=== PATIENT | female | born 1950 | race Hispanic/Latino ===

== ENCOUNTER 2020-04-07 16:09 | Inpatient (IN) | payer MEDICARE, OTHER ==
[2020-04-07 16:26] LABS: ABG BASE EXCESS -30.7 mmol/L (-2.0-3.0); ABG HCO3 7.3 mmol/L (21.0-28.0); ABG OXYGEN SATURATION 28.8 % (95.0-99.0); ABG PCO2 71 mmHg (32-45)
[2020-04-07] MEDS ORDERED: PHENYLEPHRINE HCL 10 MG/ML 1ML VIAL IV ONE (16:33)
[2020-04-07] MEDS ORDERED: SODIUM CHLORIDE 0.9% 250 ML IV ONE ×2 (16:34→17:01)
[2020-04-07 16:40] LABS: INR 1.45 (0.85-1.15)
[2020-04-07 16:41] LABS: PARTIAL THROMBOPLASTIN TIME 55.6 SEC (26.3-35.5)
[2020-04-07] MEDS ORDERED: PANTOPRAZOLE 40 MG/VIAL ONE (16:42)
[2020-04-07 16:43] LABS: CREATININE 1.9 mg/dL (0.5-1.5); POTASSIUM 5.2 mmol/L (3.5-5.1)
[2020-04-07 16:44] LABS: APPEARANCE,URINE SL CLOUDY (CLEAR); BILIRUBIN,URINE NEGATIVE (NEGATIVE); COLOR,URINE YELLOW (YELLOW); GLUCOSE, URINE (UA) NEGATIVE (NEGATIVE); KETONES,URINE 15 mg/dL (NEGATIVE); LEUKOCYTE ESTERASE ,URINE NEGATIVE (NEGATIVE); NITRATE,URINE NEGATIVE (NEGATIVE); OCCULT BLOOD,URINE NEGATIVE (NEGATIVE); PH,URINE 5.5 (5.0-8.0); PROTEIN,URINE 100 mg/dL (NEGATIVE)
[2020-04-07 16:51] LABS: BACTERIA,URINE Many /HPF (None Seen); HYALINE CASTS, URINE 0-1 /LPF (0-1 /LPF); MUCUS,URINE Few LPF (None Seen); SQUAMOUS EPITHELIAL CELL,UR 0-2 /HPF (0-2)
[2020-04-07] MEDS ORDERED: NOREPINEPHRINE BITARTRATE 1 MG/1 ML ML IV ONE (17:00)
[2020-04-07 17:06] LABS: BASOPHILS % (AUTO) 0.9 % (0.0-5.0); EOSINOPHILS % (AUTO) 0.2 % (0.0-8.0); LYMPHOCYTES % (AUTO) 23.6 % (21.0-51.0); MEAN CORPUSCULAR HEMOGLOBIN 30.1 pg (27.0-33.0); MEAN CORPUSCULAR HGB CONC 30.5 g/dL (32.0-36.0); MEAN CORPUSCULAR VOLUME 98.4 fL (79-99); MONOCYTES % (AUTO) 1.9 % (3.0-13.0); NEUTROPHILS % (AUTO) 62.2 % (40.0-77.0); PLATELET COUNT (AUTO) 137 K/uL (130-400); RED BLOOD CELL COUNT(AUTO) 3.86 MIL/uL (4.00-5.50); RED CELL DISTRIBUTION WIDTH 13.1 % (11.0-15.5); WHITE BLOOD COUNT (AUTO) 18.6 K/uL (4.8-10.8)
[2020-04-07 17:11] LABS: ALBUMIN 2.5 g/dL (3.5-5.0); BILIRUBIN,TOTAL 0.6 mg/dL (0.2-1.0); TOTAL PROTEIN, SERUM 6.9 g/dL (6.0-8.3)
[2020-04-07 17:17] LABS: TROPONIN I 1.51 ng/mL (0.00-0.06)
[2020-04-07] MEDS ORDERED: DOPAMINE 800MG/D5 250ML 250 ML IV ONE (17:24)
[2020-04-07] MEDS ORDERED: DEXTROSE 5%-WATER 1,000 ML IV ONE (17:36)
[2020-04-07] MEDS ORDERED: SODIUM BICARB 50MEQ 50ML VIAL 100 ML ONE (17:40)
[2020-04-07] MEDS ORDERED: MEROPENEM 1 GM VIAL IVP SCH (17:45)
[2020-04-07] MEDS ORDERED: FENTANYL 2500MCG+NS 250ML 250 ML IV SCH (18:00)
[2020-04-07] MEDS ORDERED: PHARMACY COMMUNICATION MISC SCH ×4 (18:00→19:15)
[2020-04-07] MEDS ORDERED: LINEZOLID 600 MG/ISO-OSM 300 ML IV SCH (18:00)
[2020-04-07] MEDS ORDERED: PHENYLEPHRINE HCL 10/NS 250ML IV PRN ×2 (18:15)
[2020-04-07] MEDS ORDERED: HYDROCORTISONE SOD SUCCINATE 100 MG/2 ML VIAL IV SCH (18:15)
[2020-04-07] MEDS ORDERED: NOREPINEPHRINE 4MG/NS 250ML 250 ML IV SCH (18:15)
[2020-04-07] MEDS ORDERED: MEROPENEM 1 GM VIAL ONE (18:26)
[2020-04-07] MEDS ORDERED: DEXTROSE 5%-WATER 100 ML IV ONE (18:27)
[2020-04-07] MEDS ORDERED: DOXYCYCLINE 100MG+NS 250ML 250 ML IV SCH (18:30)
[2020-04-07] MEDS ORDERED: SODIUM BICARB 50MEQ 50ML VIAL 50 ML ONE (18:41)
[2020-04-07] MEDS ORDERED: SODIUM CHLORIDE 0.9% 1000ML 2,000 ML IV ONE (18:44)
[2020-04-07] MEDS ORDERED: HYDROCORTISONE SOD SUCCINATE 100 MG/2 ML VIAL ONE (18:50)
[2020-04-07 18:57] LABS: CRP QUANTITATIVE 358.4 mg/L (0.00-9.0)
[2020-04-07 19:26] LABS: ABG BASE EXCESS -23.5 mmol/L (-2.0-3.0); ABG HCO3 9.3 mmol/L (21.0-28.0); ABG OXYGEN SATURATION 47.3 % (95.0-99.0); ABG PCO2 51 mmHg (32-45)
[2020-04-07] MEDS ORDERED: PANTOPRAZOLE 40 MG/VIAL IVP SCH (20:00)
[2020-04-08] MEDS ORDERED: PANTOPRAZOLE 40 MG/VIAL IVP SCH (09:00)
== END 2020-04-07 20:22 | disposition expired | DRG 871 ==
LOC: EDH 16:09 → EDHIP 17:43
PROVIDERS: ADMIT Internal Medicine; ATTEND Internal Medicine
PROC: 5A12012 Performance of Cardiac Output, Single, Manual (ICD-10-PCS; principal; 2020-04-07)
PROC: 05HM33Z Insertion of Infusion Device into Right Internal Jugular Vein, Percutaneous Approach (ICD-10-PCS; 2020-04-07)
PROC: B543ZZA Ultrasonography of Right Jugular Veins, Guidance (ICD-10-PCS; 2020-04-07)
PROC: 5A1935Z Respiratory Ventilation, Less than 24 Consecutive Hours (ICD-10-PCS; 2020-04-07)
PROC: 0BH17EZ Insertion of Endotracheal Airway into Trachea, Via Natural or Artificial Opening (ICD-10-PCS; 2020-04-07)
DX: A41.50 Gram-negative sepsis, unspecified (principal); I21.A1 Myocardial infarction type 2; J12.82 Pneumonia due to coronavirus disease 2019; J80 Acute respiratory distress syndrome; K72.00 Acute and subacute hepatic failure without coma; R65.21 Severe sepsis with septic shock; U07.1 COVID-19; N17.9 Acute kidney failure, unspecified; N39.0 Urinary tract infection, site not specified; E87.4 Mixed disorder of acid-base balance; G93.1 Anoxic brain damage, not elsewhere classified; Z66 Do not resuscitate; E11.9 Type 2 diabetes mellitus without complications; E66.01 Morbid (severe) obesity due to excess calories; E78.5 Hyperlipidemia, unspecified; E87.5 Hyperkalemia; I10 Essential (primary) hypertension; I46.9 Cardiac arrest, cause unspecified; K75.89 Other specified inflammatory liver diseases
CPT/HCPCS: 36415; 36600; 71045; 80053; 81001; 82435; 82550; 82728; 82803; 82947; 83605; 83615; 83874; 84132; 84145; 84295; 84484; 85018; 85025; 85378; 85610; 85730; 86140; 86900; 86901; 87040; 87077; 87088; 87186; 87426; 92950; 93005; 94002; C9113; G0378; J1265; J1720; J2020; J2185; J2370; J3490; J7030; J7050; J7060; J7070; U0003